=== PATIENT | female | born 1955 | race Caucasian/White ===

== ENCOUNTER 2017-01-03 09:50 | Day surgery (SDC) | payer OTHER ==
[~2017-01-03] VITALS: Ht 177.8 cm; Wt 111.0 kg
[~2017-01-03 09:50] MED LIST: CELEBREX200 MG PO; CENTRUM COMPLE1 EACH PO; DOK PLUS TABLE1 EACH PO; ENDOCET 5-3251 EACH PO; ESCITALOPRAM OX20 MG PO; EXCEDRIN EXTRA1 EACH PO; FISH OIL 1,0001 EAC7 PO; FLONASE16 G1 BOTH NARES; GLUCOSAMINE CH1 EAC2 PO; HAIR, SKIN & N1 EAC1 PO; IBUPROFEN200 M1 PO; IRON325 M1 PO; LISINOPRIL-HCT1 EACH PO; LO-DOSE ASPIRIN81 M2 PO; LOVENOX40 MG/0.4 SC; MELATONIN3 MG PO; PANTOPRAZOLE SO40 MG PO; POTASSIUM GLUCO2 MEQ PO; TYLENOL EXTRA500 MG PO; TYLENOL REGULA325 MG PO; VALSARTAN-HCTZ1 EAC1 PO; ZYRTEC10 M2 PO
== END 2017-01-03 18:00 | disposition home or self-care (01) ==
LOC: CATH 09:50
DX: I25.10 Atherosclerotic heart disease of native coronary artery without angina pectoris (principal); E78.01 Familial hypercholesterolemia; I10 Essential (primary) hypertension; Z79.82 Long term (current) use of aspirin; Z77.22 Contact with and (suspected) exposure to environmental tobacco smoke (acute) (chronic); Z82.49 Family history of ischemic heart disease and other diseases of the circulatory system
CPT/HCPCS: 85347; C1769; C1887; J0153; J1644; J2250; J3010; J7050

== ENCOUNTER 2017-03-06 06:34 | Inpatient (IN) | payer OTHER ==
[~2017-03-06] VITALS: Ht 177 cm; Wt 107.0 kg
[~2017-03-06 06:34] MED LIST changes: +PROAIR HFA8.5 GM IH
[2017-03-06 07:37] VITALS: BP 132/76
[2017-03-06 12:22] LABS: HEMATOCRIT 35.7 % (36.0-46.0); MCH 31.1 PG (29.0-34.0); MCHC 33.1 G/DL (30.0-36.0); MCV 93.9 FL (83-99); MEAN PLAT.VOLUME 10.4 uM^3 (9.5-12.4); PLATELET COUNT 212 K/uL (156-360); RBC DIS.WIDTH-CV 13.2 % (11.8-14.6); WHITE BLOOD COUNT 10.5 K/uL (4.1-10.2)
[2017-03-06 12:46] VITALS: BP 107/56
[2017-03-06 15:54] VITALS: BP 124/59
[2017-03-06 20:14] VITALS: BP 117/56
[2017-03-07 00:18] VITALS: BP 125/62
[2017-03-07 04:08] VITALS: BP 123/72
[2017-03-07 06:39] LABS: ANION GAP 12 MEQ/L (2-14); CHLORIDE 97 MEQ/L (99-109); GFR ESTIMATE (CALCULATED) > 59 mL/min/; GLUCOSE 138 mg/dL (70-99); POTASSIUM 3.3 MEQ/L (3.7-5.4); SAMPLE HEMOLYSIS CHECK 0; SAMPLE ICTERIC CHECK 0; SAMPLE LIPEMIA CHECK 0; SODIUM 135 MEQ/L (136-147); UREA NITROGEN (BUN) 7 mg/dL (9-23)
[2017-03-07 08:00] VITALS: BP 121/66
[2017-03-07 09:42] LABS: HEMATOCRIT 34.1 % (36.0-46.0); MCV 93.4 FL (83-99)
[2017-03-07 11:39] VITALS: BP 93/51
[2017-03-07 15:44] VITALS: BP 102/51
[2017-03-07 19:54] VITALS: BP 159/88
[2017-03-08 00:20] VITALS: BP 117/56
[2017-03-08 04:00] VITALS: BP 118/58
[2017-03-08 06:10] LABS: ANION GAP 12 MEQ/L (2-14); CHLORIDE 98 MEQ/L (99-109); GFR ESTIMATE (CALCULATED) > 59 mL/min/; GLUCOSE 98 mg/dL (70-99); POTASSIUM 3.6 MEQ/L (3.7-5.4); SAMPLE HEMOLYSIS CHECK 0; SAMPLE ICTERIC CHECK 0; SAMPLE LIPEMIA CHECK 0; SODIUM 135 MEQ/L (136-147); UREA NITROGEN (BUN) 13 mg/dL (9-23)
[2017-03-08 07:45] VITALS: BP 104/59
[2017-03-08] MEDS ORDERED: SENNA PLUS TAB1 EACH PO (08:36)
[2017-03-08] MEDS ORDERED: ENDOCET 5-3251 EACH PO (08:37)
[2017-03-08] MEDS ORDERED: CELECOXIB200 MG PO (08:37)
[2017-03-08] MEDS ORDERED: LOVENOX40 MG/0.4 SC (08:37)
[2017-03-08 12:09] VITALS: BP 116/56
[2017-03-08 14:41] VITALS: BP 116/62
== END 2017-03-08 15:39 | DRG 470 ==
LOC: 2SOUTH 06:34 → 3WEST 12:34 → 2SOUTH 13:19 → 3WEST 03-08 15:39
PROVIDERS: Nurse Practitioner Family; Orthopaedic Surgery
PROC: 0SRB0JA Replacement of Left Hip Joint with Synthetic Substitute, Uncemented, Open Approach (ICD-10-PCS; principal; 2017-03-06)
DX: M16.12 Unilateral primary osteoarthritis, left hip (principal); E87.6 Hypokalemia; I10 Essential (primary) hypertension; R73.03 Prediabetes; K21.9 Gastro-esophageal reflux disease without esophagitis; J44.9 Chronic obstructive pulmonary disease, unspecified; G47.30 Sleep apnea, unspecified; F32.9 Major depressive disorder, single episode, unspecified; Z96.652 Presence of left artificial knee joint; Z79.82 Long term (current) use of aspirin; Z91.09 Other allergy status, other than to drugs and biological substances
CPT/HCPCS: 73501; 80048; 85014; 85018; 85027; 99202; J0690; J1170; J1650; J2250; J2405; J7050